=== PATIENT | female | born 1955 | race Caucasian/White ===

== ENCOUNTER 2017-11-16 06:47 | Day surgery (SDC) | payer OTHER, SELFPAY ==
[2017-11-16 07:14] VITALS: BP 141/80; PULSE 60; RESP 16; TEMP 36.1; O2SAT 97; BMI 32.1
--- NOTE | 2017-11-16 08:11 | HP.PCM_ITS ---
Problem List (1) Screening for intestinal cancer Status: Acute History of Present Illness Date of Admission: 11/16/17 The patient is a 62 year old F who previously had perforated diverticulitis required a diverting colostomy. She has subsequently had a takedown the colostomy. She has had repair of incisional and stomal hernias with mesh. She has a family history of a father who had a rectal polyp. She does not believe that she is any family history of colon cancer. Fortunately she is not currently having any abdominal pain bright red blood per rectum or melena. Her weight has been slightly increasing. She has not had any acute change of bowel habits. Past Medical History Past Medical History (Chronic Problems): Chronic Problems Hypothyroidism (Chronic) HLD (hyperlipidemia) (Chronic) Diverticulitis of sigmoid colon (Chronic) Depression (Chronic) Status post colostomy (Chronic) Allergies No Known Allergies Allergy (Verified 11/09/17 12:10) Home Medications: Ambulatory Orders Medication Instructions Recorded Atorvastatin Calcium [Lipitor] 20 mg PO QHS 11/09/17 Levothyroxine Sodium [Synthroid] 100 mcg PO DAILY 11/09/17 Metformin HCl [Metformin HCl ER] 750 mg PO DAILY 11/09/17 [place]-3 Fatty Acids/Fish Oil [Fish 2 each PO QHS 11/09/17 Oil 1,000 mg Capsule] Sertraline HCl [Zoloft] 100 mg PO DAILY 11/09/17 Surgical History: colectomy Smoking Status: Never smoker Review of Systems Constitutional: Denies: Weight Change Eyes: Denies: Blurred vision, Vision Change HEENT: Denies: Ear Pain, Eye Pain Cardiovascular: Denies: Chest Pain, Claudication Respiratory: Denies: Cough, Shortness of Breath Gastrointestinal: Denies: Hematemesis, Hematochezia Genitourinary: Denies: Dysuria, Hematuria Musculoskeletal: Denies: Leg Pain Skin: Denies: Jaundice Neurological: Denies: Confusion Psychiatric: Denies: Depression Endocrine: Denies: Change in Body Habitus Hematologic/ Lymphatic: Denies: Easy Bleeding VTE Information - Inpt Only VTE Present on Admission: No Patient Problems: Active and Suspected Problems Screening for intestinal cancer (Acute) - Physical Exam General: Alert, Oriented x3, Cooperative HEENT: Atraumatic Oral: Moist Mucosa Neck: Supple Lungs: Clear to auscultation Cardiovascular: Regular rate Abdomen: Bowel Sounds Present, Soft Extremities: No clubbing Skin: No rashes Musculoskeletal: No Tenderness to Palpation of Joints or Extremities Lymphatic: No Cervical, Supraclavicular, or Inguinal Adenopathy Neurological: Cranial nerves II-XII grossly intact Psych/Mental Status: Normal Affect Vital Signs Temp Pulse Resp BP Pulse Ox 97.0 F L 60 16 141/80 H 97 11/16/17 07:14 11/16/17 07:14 11/16/17 07:14 11/16/17 07:14 11/16/17 07:14 Oxygen Delivery Method Room Air Weight: 190 lb Body Mass Index (BMI) 32.1 Assessment/Plan Active and Suspected Problems Screening for intestinal cancer (Acute) This patient has had a previous sigmoid colectomy and a previous diverting colostomy and a previous takedown of the colostomy. She presents now for follow -up screening. She has had an opportunity to ask and have questions answered. I anticipate proceeding with a colonoscopy with possible biopsy or polypectomy as indicated. Ghanshyam Hinojosa M.D., F.A.C.S.
--- NOTE | 2017-11-16 08:25 | COLBX_PTH ---
PATIENT: RAMONITA GALEANA LOC: EN U#:[id number] AGE/SX: 62/F ROOM: RE11/16/[address]: Dr. Ghanshyam Hinojosa MD : 1955 BED: DIS: 11/16/2017 SPEC #: [id number] RECD: 11/16/17 13:15 STATUS: CAROLYN CHARLES #: [id number] DAYNE: 11/16/17 08:[address]: Ghanshyam Hinojosa DEPT: SURGICAL PATHOLOGY RECD BY: Johanna Hong ENTERED: 11/16/17 14:11 SP TYPE: COLON BX OTHR DR: Dr. Matt Wells MD Tissues: Rectum, NOS Procedures: Surgery Specimen Level IV HEADER OPERATION: Colonoscopy PRE-OP DIAGNOSIS: Screening TISSUE SUBMITTED: Rectum polyp biopsy MICROSCOPIC DIAGNOSIS Rectum polyp, biopsy: Fragments of hyperplastic polyp. SJ:sofie 11/19/17 MICROSCOPIC DESCRIPTION Slides are reviewed. GROSS DESCRIPTION Received in fixative is one container labeled with the patient's name and designated rectum polyp biopsy. The specimen consists of three irregular fragments of light [place] soft tissue that in aggregate measure 0.7 x 0.7 x 0.1 cm. The specimen is totally submitted in one cassette. / SJ:sofie 11/16/17 TC:1 CPT: 79934
--- NOTE | 2017-11-16 08:34 | PCM.OPRPT ---
Problem List (1) Screening for intestinal cancer Status: Acute Report of Operation Date of Procedure: 11/16/17 Pre-Operative Diagnosis: Personal history of complicated diverticulitis, sigmoid resection, diverting colostomy Post-Operative Diagnosis: Patent colorectal anastomosis at 12 cm. Diminutive sessile polyp of the rectum. Residual diverticulosis of the descending colon Surgery/Procedure Performed:: Colonoscopy with cold forcep rectal polypectomy Description of Surgical Findings:: Timeout and informed consent was obtained. 62-year-old female was taken to the endoscopy suite. She was placed in a left lateral decubitus position. Throughout the procedure in aliquots she received a total of 75 mg Demerol and 2.5 mg of Versed is intravenous sedation. Digital rectal exam performed. Moderate internal hip changes. Normal anal tone. No mass lesions. Flexible colonoscope inserted the rectum advanced was somewhat tortuous sigmoid descending colon. It was then advanced to the transverse colon and then nicely into the ascending colon. The cecum ileocecal valve area was nicely achieved. Bowel prep was good. The scope was carefully withdrawn from the cecum ascending colon transverse colon descending colon and sigmoid. There is evidence of postsurgical changes with a patent colorectal anastomosis at 12 cm. There was residual mild diverticulosis of the descending colon. No evidence of acute inflammatory change. There was a diminutive sessile polyp of the rectum. Cold forcep was used to sample and eradicate this lesion. She tolerated procedure well. The scope was retroflexed hemorrhoidal changes noted. Excess fluid and air was aspirated free. Impression Patent colorectal anastomosis at 12 cm. Residual diverticulosis of the descending colon. Sessile benign-appearing polyp of the rectum. Internal hemorrhoids. The patient will be notified of pathology results as they become available. Previous colonoscopy at least 5 years prior. Next recommended colonoscopy will be based upon pathology possibly at 5 years. Medications were given at 0815. Scope was inserted 0818. Cecum was reached at 0821.51. The procedure was completed at 0831.3. Cc: Dr. Priscilla Hinojosa M.D., F.A.C.S. Type of Anesthesia:: IV Sedation
[2017-11-16 08:35] VITALS: BP 141/80; BP 90/54; PULSE 67; RESP 18; TEMP 36.3; O2SAT 95
[2017-11-16 08:40] VITALS: BP 100/72; BP 141/80; PULSE 68; RESP 18; O2SAT 96
[2017-11-16 08:45] VITALS: BP 141/80; BP 94/55; PULSE 73; RESP 18; O2SAT 95
[2017-11-16 08:51] VITALS: BP 115/79; BP 141/80; PULSE 75; RESP 18; TEMP 37.3; O2SAT 95
[2017-11-16 09:05] VITALS: BP 141/80
== END 2017-11-16 09:18 | disposition home or self-care (01) ==
LOC: EN 06:48 → AC 06:50
PROVIDERS: Family Provider Family Medicine; PCP Family Medicine; Visit Provider Surgery
PROC: 0DJD8ZZ Inspection of Lower Intestinal Tract, Via Natural or Artificial Opening Endoscopic (ICD-10-PCS; CPT 45378; principal; 2017-11-16 07:55)
DX: Z12.11 Encounter for screening for malignant neoplasm of colon (principal); K62.1 Rectal polyp; K57.90 Diverticulosis of intestine, part unspecified, without perforation or abscess without bleeding; K64.8 Other hemorrhoids; E03.9 Hypothyroidism, unspecified; E78.5 Hyperlipidemia, unspecified; F32.9 Major depressive disorder, single episode, unspecified; Z93.3 Colostomy status
CPT/HCPCS: 45380; 88305; J7120

== ENCOUNTER 2020-02-01 22:16 | Emergency (ER) | payer OTHER, SELFPAY ==
[2020-02-01 22:18] VITALS: BP 158/87; PULSE 87; RESP 18; TEMP 36.1; O2SAT 94; BMI 36.0
--- NOTE | 2020-02-01 22:38 | EKG12_ITS ---
Test Reason : DYSRHYTHMIA Blood Pressure : / mmHG Vent. Rate : 071 BPM Atrial Rate : 071 BPM P-R Int : 150 ms QRS Dur : 086 ms QT Int : 412 ms P-R-T Axes : 047 012 079 degrees QTc Int : 447 ms Normal sinus rhythm Nonspecific ST and T wave abnormality Abnormal ECG Confirmed by MICHAELA ANDREWS, ELPIDIO ([id number]), make up editor FIDE EDGAR ([id number]) on 02/03/2020 10:17:15 AM Referred By: ERICH Confirmed By:ELPIDIO JENNINGS MD
--- NOTE | 2020-02-01 22:44 | ED.DCSUM_ITS ---
History of Present Illness Chief Complaint: Constipation Informant: Patient Onset: Days - She reports has not had a normal bowel movement since . She is taken mag citrate, Dulcolax and other agents to help her move her bowels. She states she passed a stringy stool at 10 AM this morning while attending [facility]. She does not recall the last time she passed gas. Context: Sudden Onset Timing: Continuous Quality: Colicky abdominal pain Location: Generalized Current Severity: Mild Maximum Severity: Severe Worsened by: Possibly the laxatives and other agents she is taken to facilitate BM Relieved by: Thing Associated Symptoms: Nausea and vomiting x3 since 1999 this evening. Narrative: Patient is a 64-year-old woman status post cholecystectomy, appendectomy, vaginal hysterectomy and bowel resection due to perforated diverticular disease. Her general surgeon is Dr. Ghanshyam Hinojosa. She presents because of abdominal pain, distention and no normal bowel movement since . She had small bowel movement after numerous skvj-lfg-eclafic meds. She reports vomiting x3 since 1999. She does complain of dry mouth and thirst. She denies orthostatic symptoms. She denies dysuria, frequency, urgency or hematuria. She does have type 2 diabetes. She denies history of hypertension. She states her last colonoscopy was 2017 and was told nothing remarkable was noted. She denies blood or mucus in the stool she passed this morning. She denies prior history of small bowel obstruction. She does report intermittent headache. She denies visual, ocular auditory symptoms. She has no other complaints. Prior similar symptoms: No Recent Illness/Hospitalization: No - Past Medical History (1) History of type 2 diabetes mellitus Status: Acute (2) Depression Status: Chronic (3) Diverticulitis of sigmoid colon Status: Chronic (4) HLD (hyperlipidemia) Status: Chronic (5) Hypothyroidism Status: Chronic (6) Status post colostomy Status: Chronic Past Medical History - Allergies and Home Meds Allergies/Adverse Reactions: Allergies No Known Allergies Allergy (Verified 02/01/20 22:17) Primary Care Physician: Matt Wells MD [Primary Care Provider] - Prior records reviewed: Yes Surgical History: appendectomy, colectomy, hysterectomy, - - And bowel resection with colostomy due to perforated viscus, diverticulitis Lives: Spouse/ Significant Other Smoking Status: Never smoker Alcohol: None Drugs: None Review of Systems General: Denies: Chills, Fever, Malaise, Weight loss Eyes: Denies: Visual changes - bilaterally, Blurred Vision - bilaterally ENT: Denies: Bilateral ear pain, Rhinorrhea, Sore throat Cardiovascular: Denies: Chest pain, Palpitations Respiratory: Denies: Dyspnea, Cough, Dyspnea on exertion Gastrointestinal: Reports: Abdominal pain, Nausea, Vomiting, Constipation. Denies: Diarrhea, Melena, Hematochezia Genitourinary: Denies: Dysuria, Hematuria, Frequency Musculoskeletal: Denies: Myalgias, Arthralgias, Neck pain, Back pain, Swelling, Extremity Pain, -, - Skin: Denies: Rash, Wounds Neurological: Reports: Headache Hematologic: Denies: Easy bruising, Easy bleeding Allergy: Denies: Uticaria, Swelling of the mouth Physical Exam Vital Signs/Narrative: Vital Signs Temp Pulse Resp BP Pulse Ox 02/01/20 22:18 97 F L 87 18 158/87 H 94 Inital Vital Signs reviewed: Yes General: Well nourished, Well developed, Obese, - - And appears uncomfortable. Eyes: Perrl, EOMI. Negative for: Pale conjunctiva, Scleral icterus ENT: No rhinorrhea, TM's clear, Dry mucous membranes Neck: Supple, Nontender, No lymphadenopathy, No JVD Cardiovascular: Regular rate, Regular rhythm, No murmurs, Normal S1, Normal S2 Respiratory: No distress, CTA bilaterally, Chest nontender Abdomen: Soft, No masses, Tender, Guarding, Hypoactive bowel sounds, - - He has multiple well-healed abdominal scars. Abdomen is tympanitic to percussion throughout.. Negative for: Nontender, Nondistended, Normal bowel sounds, Rebound tenderness, Hyperactive bowel sounds, Hepatomegaly, Splenomegaly, Mass, Pulsatile mass Back: Nontender, Normal Inspection Extremities: Nontender, No edema Skin: No rash, No Trauma, Pallor. Negative for: Cyanosis, Diaphoresis, Jaundice Neurological: Alert, Oriented x3, Cranial nerves II-XII grossly intact, Normal Strength, Normal Sensation Psychological: Normal affect Diagnostic/Tx/Re-eval Impressions Abdomen CT 02/02/20 00:40 IMPRESSION: There has been a cholecystectomy. Normal right kidney. There is a 2 cm cyst in the lower pole of the LEFT kidney. There is a 2 mm stone in the midpole of the LEFT kidney. There are NO ureteral stones. There is NO hydronephrosis. There has been surgery at the sigmoid colon. Anastomosis is intact. Remainder of the colon is dilated and filled with fluid and air. There is focal thickening of the LEFT colon with induration of the surrounding fat suggesting focal colitis or diverticulitis. There is NO ischemic bowel injury or perforation. The stomach and small bowel are unremarkable. Appendix is not identified. Urinary bladder is distended. There are NO stones. There has been a hysterectomy. There is NO ascites, free air, abscess or adenopathy. Electronically Signed: Ortega Beauchamp MD at 1:09 EDT , Service support , 02/02/20 00:40 Abdomen/Pel W ORAL Cont Only [CT] Stat Laboratory Results 02/01/20 02/01/20 23:00 23:00 WBC 4.2 L RBC 7.55 H Hgb 21.5 H* Hct 67.4 H MCV 89.3 MCH 28.5 MCHC 31.9 L RDW Std Deviation 44.2 H RDW Coeff of Hilda 15.3 H Plt Count 80 L MPV 9.6 Immature Gran % (Auto) 0.200 Neut % (Auto) 70.9 H Lymph % (Auto) 23.7 [place] % (Auto) 3.8 Eos % (Auto) 0.7 Baso % (Auto) 0.7 Absolute Neuts (auto) 3.0 Absolute Lymphs (auto) 1.00 Nucleated RBC % 0 Differential Comment SCANNED Diff Path Review May foll Platelet Estimate MOD DEC Polychromasia 2+ Sodium 140 Potassium 3.7 Chloride 105 Carbon Dioxide 27.0 Anion Gap 8 BUN 13 Creatinine 0.65 Estim Creat Clear Calc 77.49 Est GFR (MDRD) Af Amer 118 Est GFR (MDRD) Non-Af 97 BUN/Creatinine Ratio 19.9 Glucose 158 H Calcium 9.3 Total Bilirubin 0.60 AST 25 ALT 39 Alkaline Phosphatase 83 Total Protein 8.3 H Albumin 3.6 Globulin 4.7 H Albumin/Globulin Ratio 0.8 L CBC is remarkable for hemoglobin 20.1 0.5. There is no history of smoking. White count is slightly low at 4.2 and platelet count is 9000. Comprehensive metabolic panel is marked for glucose of 158. Renal function is normal. CT revealed no evidence of obstruction. - Rhythm Strip Rhythm Strip: Sinus Rhythm Rate: 81 - EKG Initial EKG Interpretation: Sinus Rhythm - Sinus rhythm with a ventricular rate of 71. [place] interval 150 ms. QRS duration 86 ms. QT duration 412 ms. Alexander is normal. There is artifact, which the computer is reading nonspecific ST-T wave changes. Prior: Unchanged - Medical Decision Making With history of multiple bowel surgeries and perforated viscus concern patient may have partial small bowel obstruction. This may also represent fecal impaction. Since she is clinically dehydrated she received 1 L of normal saline wide open. Because there is high concern for obstruction CT of the abdomen with p.o. contrast was ordered. She did receive Zofran for her nausea. She declined pain medicine. Differential diagnosis ileus, partial small bowel obstruction, constipation/impaction ED Disposition - Plan for ED Patient: Disposition: Home or Assisted Living Diagnosis: Obstipation, Nausea and vomiting in adult, Polycythemia vera, Thrombocytopenia, Hyperglycemia due to type 2 diabetes mellitus, Abdominal pain, acute, generalized Instructions: Hemoglobin, Thrombocytopenia, ED Constipation Referrals: Matt Wells MD [Primary Care Provider] - 5-7 Days Additional Instructions: Later this morning drink 10 ounces of mag citrate. 4 hours later drink 1 glass of MiraLAX. Continue to drink a glass of MiraLAX every 1-2 hours until you have results.
[2020-02-01] MEDS: 0.9% Normal Saline 1,000 ML 1000 ML IV (22:59)
[2020-02-01] MEDS: Ondansetron 4 MG/2 ML Vial IV (22:59)
--- NOTE | 2020-02-01 23:03 | EKG12_ITS ---
Test Reason : DYSRHYTHMIA Blood Pressure : / mmHG Vent. Rate : 076 BPM Atrial Rate : 076 BPM P-R Int : 148 ms QRS Dur : 088 ms QT Int : 400 ms P-R-T Axes : 054 009 105 degrees QTc Int : 450 ms Normal sinus rhythm Nonspecific ST and T wave abnormality Abnormal ECG Confirmed by RAMOS ANDREWS, JACKSON ([id number]), editor city FIDE EDGRA ([id number]) on 02/12/2020 10:35:10 AM Referred By: ERICH Confirmed By:JACKSON BEASLEY MD
[2020-02-01 23:36] LABS: ALB/GLOB Ratio 0.8 RATIO (0.9-2.4); AST(SGOT) 25 U/L (15-37); Alanine Aminotransfer ALT/SGPT 39 U/L (13-56); Albumin, Serum 3.6 g/dL (3.2-5.0); Alkaline Phosphatase 83 U/L (45-117); Anion Gap 8 (5-15); BUN 13 mg/dL (7-18); BUN/Creat Ratio 19.9 RATIO (10-20); Calcium,Total 9.3 mg/dL (8.5-10.1); Chloride 105 mmol/L (98-107); Creatinine, Serum 0.65 mg/dL (0.55-1.02); EST Glomerular Filtration Rate 97 mL/min (>60); Est Glom Filt Rate - Afr Amer 118 mL/min (>60); Estimated Creatinine Clearance 77.49 ml/min; Globulin 4.7 g/dL (2.2-4.2); Glucose 158 mg/dL (74-106); Potassium 3.7 mmol/L (3.5-5.1); Protein, Total 8.3 g/dL (6.4-8.2); Sodium Level 140 mmol/L (136-145)
[2020-02-01 23:44] LABS: Basophil# 0.03 X10^3/uL; Mean Corp Hgb Conc 31.9 g/dL (32-36); NRBC Flagged by Analyzer 0 % (0-5)
[2020-02-01 23:47] LABS: Differential Indicated SCAN CRITERIA MET
[2020-02-02 00:08] LABS: Differential Comment SCANNED; Pathologist Review May foll; Platelet Estimate MOD DEC (ADEQ); Polychromasia 2+
[2020-02-02 00:25] VITALS: BP 141/81; PULSE 72; RESP 28; O2SAT 93
--- NOTE | 2020-02-02 00:40 | CT_ITS ---
STUDY: CT ABDOMEN AND PELVIS WITHOUT CONTRAST REASON FOR EXAM: Female, 64 years old. ABD DISTENTION/VOMITING/CONSTIPATION. Hx of vaginal hysterectomy(still has ovaries), appendectomy,cholecystectomy,umbilical hernia repair, sigmoid resection with colostomy and reversal. RADIATION DOSAGE (If Supplied By Facility): CTDIvol = ( 17.21 ) mGy, DLP = ( 885.56 ) mGycm TECHNIQUE: Transaxial images were obtained from the dome of the diaphragm to the symphysis pubis without oral contrast, and without intravenous contrast. Sagittal and coronal images were reconstructed. Individualized dose optimization techniques were used for this CT. COMPARISON: None. FINDINGS: There is a 7 mm calcified granuloma at the RIGHT lung base. There are NO active infiltrates. The visualized portions of the heart are within normal limits. Normal liver. There has been a cholecystectomy. Normal spleen. Normal pancreas. Normal bilateral adrenal glands. Normal right kidney. There is a 2 cm cyst in the lower pole of the LEFT kidney. There is a 2 mm stone in the midpole of the LEFT kidney. There are NO ureteral stones. There is NO hydronephrosis. There has been surgery at the sigmoid colon. Anastomosis is intact. Remainder of the colon is dilated and filled with fluid and air. There is focal thickening of the LEFT colon with induration of the surrounding fat suggesting focal colitis or diverticulitis. There is NO ischemic bowel injury or perforation. The stomach and small bowel are unremarkable. Appendix is not identified. Normal abdominal aorta. Normal inferior vena cava. Normal retroperitoneum. Urinary bladder is distended. There are NO stones. There has been a hysterectomy. There is NO ascites, free air, abscess or adenopathy. Normal abdominal wall. Normal osseous structures. CT/Abdomen/Pel W ORAL Cont Only IMPRESSION: There has been a cholecystectomy. Normal right kidney. There is a 2 cm cyst in the lower pole of the LEFT kidney. There is a 2 mm stone in the midpole of the LEFT kidney. There are NO ureteral stones. There is NO hydronephrosis. There has been surgery at the sigmoid colon. Anastomosis is intact. Remainder of the colon is dilated and filled with fluid and air. There is focal thickening of the LEFT colon with induration of the surrounding fat suggesting focal colitis or diverticulitis. There is NO ischemic bowel injury or perforation. The stomach and small bowel are unremarkable. Appendix is not identified. Urinary bladder is distended. There are NO stones. There has been a hysterectomy. There is NO ascites, free air, abscess or adenopathy. Electronically Signed: Ortega Beauchamp MD at 1:09 EDT , Service support ,
[2020-02-02 01:26] VITALS: BP 148/78; PULSE 81; RESP 22; O2SAT 95
[2020-02-02 14:48] LABS: White Blood Count 11.3 K/mm3 (4.4-11.0)
[2020-02-02 14:49] LABS: Hematocrit 35.4 % (37-47); Hemoglobin 11.3 g/dL (12.0-15.0); Mean Corpuscular Hgb 28.9 pg (27.0-32.0); Mean Corpuscular Volume 90.5 fL (81-99); Red Blood Count 3.91 M/mm3 (4.2-5.4)
[2020-02-02 14:50] LABS: RBC Distribution Width CV 13.5 % (11.6-14.6); RBC Distribution Width SD 44.4 fl (35.1-43.9)
[2020-02-02 14:51] LABS: Lymphocyte % 12.2 % (19-41); Mean Platelet Vol. 10.3 fl (6.2-12.0); Monocyte% 5.9 % (0-10); Neutrophil % 80.7 % (47-70); Platelet Count 305 K/mm3 (150-450)
[2020-02-02 14:52] LABS: Basophil% 0.3 % (0-1); Eosinophils% 0.5 % (0-5); Neutrophil # 9.09 X10^3/uL (2.7-7.7)
[2020-02-02 14:53] LABS: Absolute Neutrophil Count 9.1 X10^3/uL (2.0-7.7)
[2020-02-02 14:54] LABS: Absolute Lymphocyte Count 1.37 X10^3/uL (0.83-4.51); Eosinophil# 0.06 X10^3/uL; Lymphocyte # 1.37 X10^3/ul (4.0); Monocyte# 0.66 X10^3/uL
== END 2020-02-02 01:44 | disposition home or self-care (01) ==
PROVIDERS: Emergency Provider Emergency Medicine; PCP Family Medicine
DX: K59.00 Constipation, unspecified (principal); E11.65 Type 2 diabetes mellitus with hyperglycemia; D45 Polycythemia vera; D69.6 Thrombocytopenia, unspecified; R10.84 Generalized abdominal pain; F32.9 Major depressive disorder, single episode, unspecified; E78.5 Hyperlipidemia, unspecified; E03.9 Hypothyroidism, unspecified; Z93.3 Colostomy status; Z79.84 Long term (current) use of oral hypoglycemic drugs; Z79.899 Other long term (current) drug therapy; E66.9 Obesity, unspecified
CPT/HCPCS: 74176; 80053; 85025; 93005; 96361; 96374; 99285; J7030; A4216; J2405

== ENCOUNTER 2022-12-26 05:17 | Day surgery (SDC) | payer MEDICARE, SELFPAY ==
[2022-12-26] VITALS (7 sets, daily range): BP systolic 102–132; BP diastolic 55–74; PULSE 60–73; RESP 16; TEMP 36.5–37; O2SAT 95–97; BMI 31.6
[2022-12-26] MEDS: Lactated Ringers 1,000 ML 15 ML IV (05:52)
--- NOTE | 2022-12-26 06:10 | HP.PCM_ITS ---
[facility] - General General Date of Service: 12/26/22 Chief Complaint: Surveillance with personal history of colon polyps HPI Narrative RAMONITA GALEANA, is a 67 F who presents via open access today for surveillance colonoscopy. Previous colonoscopy was November 16, 2017 and I removed a polyp at that time. She does have a previous sigmoid anastomosis from a previous perforated diverticulitis. She also required a temporary diverting colostomy at that time. She states that she occasionally will get hemorrhoids to flare and has some rectal bleeding but overall feels good. No abdominal pain. No unexpected weight loss. No history of DVT. [facility] Medical History (Updated 12/26/22 @ 06:[address] Ghanshyam Hinojosa MD) Anxiety CPAP (continuous positive airway pressure) dependence Diabetes Gastric reflux High cholesterol History of diverticulitis History of echocardiogram History of stress test Non-smoker Post-menopausal Sleep apnea Thyroid disease Wears glasses Wears hearing aid Home Medications atorvastatin 20 mg tablet 20 mg PO QHS 11/09/17 [History Last Taken Unknown] levothyroxine 100 mcg tablet (Synthroid) 100 mcg PO DAILY 11/09/17 [History Last Taken Unknown] omega-3 fatty acids-fish oil 340 mg-1,000 mg capsule (Fish Oil) 2 ea PO QHS 11/09/17 [History Last Taken 12/13/22] sertraline 100 mg tablet (Zoloft) 100 mg PO DAILY 11/09/17 [History Last Taken Unknown] Bacillus coagulans 10 billion cell capsule,delayed release (Probiotic (B. coagulans)) 1 cell PO DAILY 11/15/22 [History Last Taken Unknown] cholecalciferol (vitamin D3) 50 mcg (2,000 unit) capsule 25 mcg PO DAILY 11/15/22 [History Last Taken Unknown] glipizide 10 mg tablet, extended release 24 hr 5 mg PO DAILY 11/15/22 [History Last Taken Unknown] Allergy/AdvReac Type Severity Reaction Status Date / Time metformin AdvReac Diarrhea Verified 12/26/22 05:48 Family History (Updated 11/15/22 @ 11:51 by Rosio Rubio) Father Colon polyps Surgical History (Updated 12/19/22 @ 15:40 by Symone Marcos) History of colonoscopy History of colostomy reversal Hx of colostomy Social History Smoking Status: Never smoker ROS Constitutional Constitutional: Reports systems reviewed and no addt'l complaints, except as documented Cardiovascular Cardiovascular: Denies chest pain Respiratory/Chest Respiratory/Chest: Denies shortness of breath at rest Gastrointestinal Gastrointestinal: Denies abdominal pain, change in bowel habits, hematochezia or melena Vital Signs Vital Signs Vital Signs: 12/26/22 05:49 12/26/22 05:49 Temperature 97.8 F Temperature Source Temporal Pulse Rate 62 Respiratory Rate 16 Respiratory Pattern Normal Blood Pressure 132/62 H Blood Pressure Mean 85 Blood Pressure Source Monitor Blood Pressure Position Sitting Blood Pressure Location Right Arm Pulse Ox 95 Oxygen Delivery Method Room Air Weight Weight: 190 lb 7.67 oz Body Mass Index (BMI) 31.6 Physical Exam Const alert, oriented x3 and no apparent distress General Appearance: cooperative and comfortable Eyes General Eye: normal appearance of both eyes Neck General: normal visual inspection Chest inspection of chest normal Resp Effort and Inspection: able to speak in complete sentences and symmetric chest movement Auscultation: clear to auscultation bilaterally Cardio regular rate and regular rhythm GI soft to palpation, non-tender and non-distended Extremity no calf tenderness Neuro oriented x3 Psych thought process normal Assessment & Plan Assessment/Plan (1) Personal history of colonic polyps: PLAN: The patient presents today via open access for surveillance colonoscopy as she has a personal history of colon polyps. She is aware of the technique, benefit, risk, alternatives. She has had an opportunity to ask and have questions answered. We will proceed as noted. Ghanshyam Hinojosa M.D., F.A.C.S.
[2022-12-26 06:16] LABS: Bedside Glucose 126 mg/dL (74-106)
--- NOTE | 2022-12-26 06:30 | COLBX_PTH ---
PATIENT: RAMONITA GALEANA LOC: EN U#:[id number] AGE/SX: 67/F ROOM: RE12/26/[address]: Dr. Ghanshyam Hinojosa MD : 1955 BED: DIS: 12/26/2022 SPEC #: [id number] RECD: 12/26/22 09:39 STATUS: CAROLYN SOTO #: [id number] DAYNE: 12/26/22 06:[address]: Ghanshyam Hinojosa DEPT: SURGICAL PATHOLOGY RECD BY: Nel Cardenas ENTERED: 12/26/22 10:31 SP TYPE: COLON BX OTHR DR: ANTONELLA Lopez Tissues: Transverse colon Procedures: Surgery Specimen Level IV HEADER OPERATION: Colonoscopy ? open access (MAC), polypectomy PRE-OP DIAGNOSIS: History of colonic polyps TISSUE SUBMITTED: Proximal transverse polyp MICROSCOPIC DIAGNOSIS Proximal transverse colon polyp, polypectomy: Fragments of hyperplastic polyp. SJ:sofie 12/27/2022 MICROSCOPIC DESCRIPTION Slides are reviewed. GROSS DESCRIPTION Received in fixative is one container labeled with the patient's name and designated proximal transverse polyp. The specimen consists of multiple irregular fragments of light byrne soft tissue that in aggregate measure 1.0 x 0.5 x 0.1 cm. The specimen is totally submitted in one cassette. / SJ:sofie 12/26/2022 TC:1 CPT: 49768
--- NOTE | 2022-12-26 06:56 | OP.COLON_ITS ---
Patient Name: Lorena Hahn Procedure Date: 12/26/2022 6:22 AM Date of : 1955 Age: 67 Procedure: Colonoscopy Indications: High risk colon cancer surveillance: Personal history of colonic polyps Providers: Ghanshyam Hinojosa MD Referring MD: Ghanshyam Hinojosa MD Medicines: See the Anesthesia note for documentation of the administered medications Patient Profile: Last Colonoscopy: October 2017. Complications: No immediate complications. Procedure: Pre-Anesthesia Assessment: - Prior to the procedure, a History and Physical was performed, and patient medications and allergies were reviewed. The patient's tolerance of previous anesthesia was also reviewed. The risks and benefits of the procedure and the sedation options and risks were discussed with the patient. All questions were answered, and informed consent was obtained. Prior Anticoagulants: The patient has taken no previous anticoagulant or antiplatelet agents. ASA Grade Assessment: II - A patient with mild systemic disease. After reviewing the risks and benefits, the patient was deemed in satisfactory condition to undergo the procedure. After I obtained informed consent, the scope was passed under direct vision. Throughout the procedure, the patient's blood pressure, pulse, and oxygen saturations were monitored continuously. The Colonoscope was introduced through the anus and advanced to the cecum, identified by appendiceal orifice and ileocecal valve. The colonoscopy was performed without difficulty. The patient tolerated the procedure well. The quality of the bowel preparation was good. The ileocecal valve and the appendiceal orifice were photographed. Scope In: 6:34:41 AM Scope Withdrawal Time 0 hours 9 minutes 50 seconds Scope Out: 6:49:14 AM Total Procedure Duration Time 0 hours 14 minutes 33 seconds Findings: The digital rectal exam findings include non-thrombosed external hemorrhoids, non-thrombosed internal hemorrhoids and internal hemorrhoids that prolapse with straining, but spontaneously regress to the resting position (Grade II). There was evidence of a prior end-to-side colo-colonic anastomosis in the recto-sigmoid colon. This was patent and was characterized by healthy appearing mucosa. A 6 mm polyp was found in the proximal transverse colon. The polyp was sessile. The polyp was removed with a cold snare. Resection and retrieval were complete. Multiple diverticula were found in the sigmoid colon. Impression: - Non-thrombosed external hemorrhoids, non-thrombosed internal hemorrhoids and internal hemorrhoids that prolapse with straining, but spontaneously regress to the resting position (Grade II) found on digital rectal exam. - Patent end-to-side colo-colonic anastomosis, characterized by healthy appearing mucosa. - One 6 mm polyp in the proximal transverse colon, removed with a cold snare. Resected and retrieved. - Diverticulosis in the sigmoid colon. Recommendation: - Discharge patient to home. - Resume previous diet. - Continue present medications. - Repeat colonoscopy in 5 years for surveillance based on pathology results. - Telephone my office for pathology results in 1 week. Procedure Code(s): --- Professional --- 22986, Colonoscopy, flexible; with removal of tumor(s), polyp(s), or other lesion(s) by snare technique Diagnosis Code(s): --- Professional --- Z86.010, Personal history of colonic polyps K64.1, Second degree hemorrhoids K64.4, Residual hemorrhoidal skin tags Z98.0, Intestinal bypass and anastomosis status D12.3, Benign neoplasm of transverse colon (hepatic flexure or splenic flexure) K57.30, Diverticulosis of large intestine without perforation or abscess without bleeding CPT copyright 2017 [employer]. All rights reserved. The codes documented in this report are preliminary and upon relief charge nurse review may be revised to meet current compliance requirements. Ghanshyam Hinoojsa MD 12/26/2022 6:54:48 AM This report has been signed electronically. Number of Addenda: 0 Note Initiated On: 12/26/2022 6:22 AM
--- NOTE | 2022-12-26 06:56 | OP.CCLET_ITS ---
12/26/2022 [facility] Re : Colonoscopy procedure for Lorena Barrera This procedure was performed on Monday, December 26, 2022. My impressions and recommendations are as follows: Impressions : - Non-thrombosed external hemorrhoids, non-thrombosed internal hemorrhoids and internal hemorrhoids that prolapse with straining, but spontaneously regress to the resting position (Grade II) found on digital rectal exam. - Patent end-to-side colo-colonic anastomosis, characterized by healthy appearing mucosa. - One 6 mm polyp in the proximal transverse colon, removed with a cold snare. Resected and retrieved. - Diverticulosis in the sigmoid colon. Recommendations : - Discharge patient to home. - Resume previous diet. - Continue present medications. - Repeat colonoscopy in 5 years for surveillance based on pathology results. - Telephone my office for pathology results in 1 week. My findings are described in the full procedure note, which is enclosed. If I can be of further assistance, please feel free to contact me at Doctor phone number(s): Work: . Sincerely, Ghanshyam Hinojosa MD 12/26/2022 6:54:48 AM This report has been signed electronically.
== END 2022-12-26 07:31 | disposition home or self-care (01) ==
LOC: EN 05:18 → AC 05:20
PROVIDERS: PCP Physician Assistant; Referring Provider Physician Assistant; Visit Provider Surgery
PROC: 0DJD8ZZ Inspection of Lower Intestinal Tract, Via Natural or Artificial Opening Endoscopic (ICD-10-PCS; CPT 45378; principal; 2022-12-26 06:25)
DX: K63.5 Polyp of colon (principal); E11.9 Type 2 diabetes mellitus without complications; Z12.11 Encounter for screening for malignant neoplasm of colon; Z86.010 Personal history of colon polyps; K62.5 Hemorrhage of anus and rectum; K57.30 Diverticulosis of large intestine without perforation or abscess without bleeding; K64.4 Residual hemorrhoidal skin tags; Z79.84 Long term (current) use of oral hypoglycemic drugs; E78.00 Pure hypercholesterolemia, unspecified; K64.1 Second degree hemorrhoids; Z98.0 Intestinal bypass and anastomosis status; Z87.19 Personal history of other diseases of the digestive system; E07.9 Disorder of thyroid, unspecified; Z79.890 Hormone replacement therapy
CPT/HCPCS: 45385; 82962; 88305; J2405

== ENCOUNTER → 2023-09-05 | Outpatient (CLI) | payer MEDICARE, SELFPAY ==
--- NOTE | 2023-09-05 | ASPS_PTH ---
PATHOLOGY RESULTS PATIENT: RAMONITA GALEANA LOC: [facility] U#:[id number] AGE/SX: 68/F ROOM: RE09/05/[address]: Dr. 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 Adequate for evaluation. See comment. SJ:sofie 09/06/2023 COMMENT Correlation with clinical, radiologic findings and appropriate follow up are necessary. The Bolivar System for thyroid diagnostic categorization was used in the evaluation of this case. Per recommendations and a clinician-approved plan (a call was made to the referring doctor about the recommendation), genomic testing (Afirma) has been submitted. Results will be reported as an addendum and faxed to clinician. Case has been reviewed in consultation with Dr. Menjivar who concurs with the above diagnosis. IDC:AM CYTOLOGY STUDY Slides are reviewed. CYTOLOGY GROSS Received are six smears labeled with the patient's name and designated per the requisition as isthmus. Submitted for staining. / sofie 09/05/2023 TC:5 CPT: 67410 ADDENDUM ADDENDUM 09/24/2023 09:35 AFIRMA RESULTS REPORT RESULTS INTERPRETATION: The result of this 1.8 cm Bolivar III nodule A is Afirma GSC benign, which suggests a low risk of cancer of approximately 4%. Please see complete report in e-chart or EMR
--- OUTSIDE RECORDS SUMMARY | 2023-09-05 15:36 | XMS RPT_ITS | CCD ---
Author Name Unknown Address Count includes the [facility] [facility] [address] [place] [address] Organization [facility] Care Team Providers Care Foam Caster Name Role Phone Matt Wells Primary Care Provider ASHIA GREENWOOD Primary Care Unavailable ASHIA GREENWOOD Consulting Unavailable ASHIA GREENWOOD Attending Unavailable ASHIA GREENWOOD Admitting Unavailable PROVIDER, UNKNOWN Consulting Unavailable ASHIA GREENWOOD Primary Care Unavailable ASHIA GREENWOOD Consulting Unavailable ASHIA GREENWOOD Attending Unavailable ASHIA GREENWOOD Admitting Unavailable PROVIDER, UNKNOWN Consulting Unavailable Allergies Allergy Classification Reported Allergen(s) Allergy Type Date of Onset Reaction(s) Facility Adhesive Tape (1 source) Adhesive Tape Substance Allergy 12-28-2011 Intolerance [facility] Medications Completed/Discontinued Medications Medication Drug Class(es) Dates Sig (Normalized) Sig (Original) Adhesive Tape (PAPER TAPE) 1 X 10 -yard Tape (1 source) Start: 02-01-2012 End: 10-02-2012 Adhesive Tape (PAPER TAPE) 1 X 10 -yard Tape Apply 1 application to affected area once daily. 1 Each 12 02/01/2012 10/02/2012 Discontinued (Course of therapy completed) Problems Active Problems Problem Classification Problem Date Documented Da te Episodic/Chronic Diverticulosis and diverticulitis (1 source) Diverticulitis of large intestine; Translations: [Diverticulitis of large intestine with perforation and abscess without bleeding] Onset: 2 01-18-2012 Chronic Gastrointestinal hemorrhage (2 sources) Rectal hemorrhage; Translations: [Hemorrhage of anus and rectum] Onset: 2 2011 Episodic Other gastrointestinal disorders (1 source) Irritable bowel syndrome; Translations: [Irritable bowel syndrome without diarrhea] Onset: 1 2011 Chronic Other screening for suspected conditions (not mental disorders or infectious disease) (2 sources) Electrocardiogram abnormal; Translations: [Abnormal electrocardiogram [ECG] [EKG]] Onset: 3 Episodic Past or Other Problems Problem Classification Problem Date Documented Da te Episodic/Chronic Abdominal hernia (1 source) Incisional hernia; Translations: [Incisional hernia without obstruction or gangrene] Onset: 02-11-2013 02-11-2013 Episodic Complications of surgical procedures or medical care (1 source) Non-healing surgical wound; Translations: [Other complications of procedures, not elsewhere classified, initial encounter] Onset: 11-27-2011 11-27-2011 Episodic Hemorrhoids (2 sources) Internal hemorrhoids; Translations: [Other hemorrhoids] Onset: 08-16-2009 08-16-2009 Episodic Open wounds of head; neck; and trunk (1 source) Open wound of abdomen; Translations: [Unspecified open wound of abdominal wall, unspecified quadrant without penetration into peritoneal cavity, initial encounter] Onset: 01-03-2012 01-03-2012 Episodic Other and unspecified benign neoplasm (1 source) Benign neoplasm of rectum and anal canal; Translations: [Benign neoplasm of rectum] Onset: 10-16-2011 10-16-2011 Episodic Other gastrointestinal disorders (1 source) Diarrhea; Translations: [Diarrhea, unspecified] Onset: 08-16-2009 08-16-2009 Episodic Other injuries and conditions due to external causes (1 source) Open wound; Translations: [Other injury of unspecified body region, initial encounter] Onset: 12-21-2011 12-21-2011 Episodic Results Test Name Value Interpretation Reference Range Facil ity Encounters Encounter Date Encounter Type Care Provider Facility Start: 08-08-2023 End: 08-08-2023 ambulatory [facility] Start: 05-21-2023 End: 05-21-2023 ambulatory [facility] Start: 04-09-2012 End: 04-09-2012 Telephone encounter Ghanshyam Hinojosa Work Phone: General Surgery Procedures Date Procedure Procedure Detail Performing Clinician Start: 09-30-2012 NM CARDIAC PERF STRESS/EXERCISE Ghanshyam Hinojosa Work Phone: Start: 09-27-2012 Colonoscopy Ghanshyam narayanan Work Phone: Start: 07-11-2012 Mammography Ghanshyam narayanan Work Phone: Plan of Treatment Date Care Activity Detail Author Start: 04-27-2021 Influenza vaccination INFLUENZA (Sea son Ended) [facility] Start: 09-27-2017 Screening for malign ant neoplasm of colon [facility] Start: 01-25-2016 LIPID SCREEN LIPID SCREEN [facility] Start: 12-20-2014 DIABETES SCREEN DIABETES SCREEN [facility] Start: 07-11-2013 Mammography MAMMOGRAM [facility] Start: 2007 Screening for malign ant neoplasm of colon [facility] Start: 2007 SHINGRIX VACCINE (1 of 2) GONZALES GRIX VACCINE (1 of 2) [facility] Start: 1976 Urine microalbumin profile DTAP,TDAP ,TD (1 - Tdap) [facility] Start: 1975 HEPATITIS C SCREENING HEPATITIS C SC REENING [facility] Start: 1975 HIV SCREENING HIV SCREENING [facility] Start: 1969 Adult depression scr eening assessment DEPRESSION SCREENING [facility] Immunizations Immunization Date Immunization Notes Care Provider Gopal muñoz 05-27-2011 influenza virus vacc ine, unspecified formulation Ghanshyam Hinojosa Work Phone: [facility] Payers Date Payer Category Payer Unknown MMO [employer] [id number] 2010-2019 PPO [id number] 1955 Unknown [id number] 1955 Unknown [id number] Medicare [id number] Social History Date Type Detail Facility Start: 04-02-2012 Tobacco smoking stat us NHIS Never smoker [facility] Start: 04-02-2012 Tobacco use and exposure Never used [facility] Start: 04-02-2012 Alcohol intake Current non-dr parts representative of alcohol (finding) [facility] Start: 1955 Sex Assigned At Not on file [facility] Note 04-09-2012 Telephone Encounter - Amada Wyatt Rn - 04/09/2012 2:38 PM EDT Note Date & Type Note Facility 04-09-2012 Miscellaneous Notes Pt was in ER on Sunday for back pain. Pt states she was given Morphine and Toradol and muscle relaxants. She has not had any stool out of colostomy bag or gas since Sunday. Pt c/o abdominal pain and nausea. Pt states she has not eaten much and taking Senna. Informed Dr Hinojosa of above. Per Dr Hinojosa, pt is take a bottle of Mag Citrate. Informed pt of above. Verbalized understanding. documented in this encounter [facility] Evaluation note Note Date & Type Note Facility documented in this encounter [facility] Summary Purpose Family History No Family History Records FoundNo Family History Records Found Advance Directives No Advanced Directives Records FoundNo Advanced Directives Records Found Additional Source Comments Source Comments (unrecognize d section and content) In the event this informatio n is protected by the Federal Confidentiality of Alcohol and Drug Abuse Patient Records regulations: The Federal rules restrict any use of the information to criminally investigate or prosecute any alcohol or drug abuse patient.[facility] Reason for Visit (unrecogniz ed section and content) INFORMATION SOURCE (unrecogn ized section and content) DATE CREATED AUTHOR AUTHOR'S ORGANIZ ATION 08/10/2023 [facility] FOR RECORDS PERTAINING TO PATIENTS WHO ARE OR HAVE BEEN ENROLLED IN A CHEMICAL DEPENDENCY/SUBSTANCEABUSE PROGRAM, SOME INFORMATION MAY BE OMITTED. This clinical summary was aggregated from multiple sources. Caution should be exercised in using it in the provision of clinical care. This summary normalizes information from multiple sources, and as a consequence, information in this document may materially change the coding, format and clinical context of patient data. In addition, data may be omitted in some cases. CLINICAL DECISIONS SHOULD BE BASED ON THE PRIMARY CLINICAL RECORDS. [facility]. provides no warranty or guarantee of the accuracy or completeness of information in this document.
== END | disposition home or self-care (01) ==
LOC: LABSPEC 15:14
PROVIDERS: PCP Physician Assistant; Referring Provider Surgery; Visit Provider Surgery
DX: E04.1 Nontoxic single thyroid nodule (principal)
CPT/HCPCS: 88161; 88313

== ENCOUNTER → 2023-12-04 | Outpatient (CLI) | payer MEDICARE, SELFPAY ==
[2023-12-04 14:50] LABS: Free T3 2.2 pg/mL (2.18-3.98); T4 Free Direct 0.53 ng/dL (0.76-1.46); Thyroid Stim Hormone (TSH) 0.08 uIU/mL (0.358-3.74)
== END | disposition home or self-care (01) ==
LOC: LAB 11:00
PROVIDERS: PCP Physician Assistant; Referring Provider Internal Medicine Endocrinology, Diabetes & Metabolism; Visit Provider Internal Medicine Endocrinology, Diabetes & Metabolism
DX: E05.00 Thyrotoxicosis with diffuse goiter without thyrotoxic crisis or storm (principal); F32.9 Major depressive disorder, single episode, unspecified
CPT/HCPCS: 36415; 84439; 84443; 84481

== ENCOUNTER → 2023-12-27 | Outpatient (CLI) | payer MEDICARE, SELFPAY ==
[2023-12-27 11:29] LABS: Free T3 3.2 pg/mL (2.18-3.98)
== END | disposition home or self-care (01) ==
LOC: LAB 10:07
PROVIDERS: PCP Physician Assistant; Referring Provider Internal Medicine Endocrinology, Diabetes & Metabolism; Visit Provider Internal Medicine Endocrinology, Diabetes & Metabolism
DX: E05.00 Thyrotoxicosis with diffuse goiter without thyrotoxic crisis or storm (principal)
CPT/HCPCS: 36415; 84439; 84481

== ENCOUNTER → 2024-03-08 | Outpatient (CLI) | payer MEDICARE, SELFPAY ==
[2024-03-08 10:38] LABS: Free T3 4.3 pg/mL (2.18-3.98); T4 Free Direct 1.12 ng/dL (0.76-1.46); Thyroid Stim Hormone (TSH) < 0.01 uIU/mL (0.358-3.74)
== END | disposition home or self-care (01) ==
LOC: LAB 09:29
PROVIDERS: PCP Physician Assistant; Referring Provider Internal Medicine Endocrinology, Diabetes & Metabolism; Visit Provider Internal Medicine Endocrinology, Diabetes & Metabolism
DX: E05.00 Thyrotoxicosis with diffuse goiter without thyrotoxic crisis or storm (principal)
CPT/HCPCS: 36415; 84439; 84443; 84481

== ENCOUNTER → 2024-03-18 | Outpatient (CLI) | payer MEDICARE, SELFPAY ==
[2024-03-18 12:40] LABS: Free T3 4.5 pg/mL (2.18-3.98); T4 Free Direct 1.15 ng/dL (0.76-1.46); Thyroid Stim Hormone (TSH) < 0.01 uIU/mL (0.358-3.74)
== END | disposition home or self-care (01) ==
LOC: LAB 10:50
PROVIDERS: PCP Physician Assistant; Visit Provider Internal Medicine Endocrinology, Diabetes & Metabolism
DX: E05.00 Thyrotoxicosis with diffuse goiter without thyrotoxic crisis or storm (principal)
CPT/HCPCS: 36415; 84439; 84443; 84481

== ENCOUNTER → 2024-04-17 | Outpatient (CLI) | payer MEDICARE, SELFPAY ==
[2024-04-17 17:20] LABS: Free T3 3.4 pg/mL (2.18-3.98); T4 Free Direct 0.91 ng/dL (0.76-1.46); Thyroid Stim Hormone (TSH) < 0.005 uIU/mL (0.358-3.740)
== END | disposition home or self-care (01) ==
LOC: LAB 16:02
PROVIDERS: PCP Physician Assistant; Referring Provider Internal Medicine Endocrinology, Diabetes & Metabolism; Visit Provider Internal Medicine Endocrinology, Diabetes & Metabolism
DX: E05.00 Thyrotoxicosis with diffuse goiter without thyrotoxic crisis or storm (principal)
CPT/HCPCS: 36415; 84439; 84443; 84481

== ENCOUNTER → 2024-05-21 | Outpatient (CLI) | payer MEDICARE, SELFPAY ==
[2024-05-21 10:40] LABS: Free T3 3.4 pg/mL (2.18-3.98); Thyroid Stim Hormone (TSH) < 0.005 uIU/mL (0.358-3.740)
== END | disposition home or self-care (01) ==
LOC: LAB 08:57
PROVIDERS: PCP Physician Assistant; Referring Provider Internal Medicine Endocrinology, Diabetes & Metabolism; Visit Provider Internal Medicine Endocrinology, Diabetes & Metabolism
DX: E05.00 Thyrotoxicosis with diffuse goiter without thyrotoxic crisis or storm (principal)
CPT/HCPCS: 36415; 84439; 84443; 84481

== ENCOUNTER → 2024-08-05 | Outpatient (CLI) | payer MEDICARE, SELFPAY ==
[2024-08-05 12:53] LABS: Vitamin D,25 Hydroxy 33.7 ng/mL
[2024-08-05 13:27] LABS: ALB/GLOB Ratio 0.8 RATIO (0.9-2.4); AST(SGOT) 18 U/L (15-37); Alanine Aminotransfer ALT/SGPT 22 U/L (13-56); Albumin, Serum 3.5 g/dL (3.2-5.0); Alkaline Phosphatase 112 U/L (45-117); Anion Gap 5 (5-15); BUN 15 mg/dL (7-18); Calcium,Total 9.6 mg/dL (8.5-10.1); Chloride 107 mmol/L (98-107); Cholesterol 149 mg/dL (200); EST Glomerular Filtration Rate 106 mL/min (>60); Est Glom Filt Rate - Afr Amer 128 mL/min (>60); Free T3 3.1 pg/mL (2.18-3.98); Globulin 4.2 g/dL (2.2-4.2); Glucose 87 mg/dL (74-106); High Density Lipoprotein 55 mg/dL; Protein, Total 7.7 g/dL (6.4-8.2); Sodium Level 139 mmol/L (136-145); T4 Free Direct 0.79 ng/dL (0.76-1.46); Thyroid Stim Hormone (TSH) 0.012 uIU/mL (0.358-3.740); Triglycerides 102 mg/dL; Very Low Density Lipoprotein 20 mg/dL (5-40)
[2024-08-05 19:26] LABS: Microalbumin,Random Urine 32.3 mg/L (NO RANGE EST.); Microalbumin:Creatinine Ratio 76.5 mg/g CRE (<30 mg/g CRE)
== END | disposition home or self-care (01) ==
LOC: BIMLAB 10:04
PROVIDERS: PCP Physician Assistant; Referring Provider Internal Medicine Endocrinology, Diabetes & Metabolism; Visit Provider Internal Medicine Endocrinology, Diabetes & Metabolism
DX: E11.649 Type 2 diabetes mellitus with hypoglycemia without coma (principal); E05.00 Thyrotoxicosis with diffuse goiter without thyrotoxic crisis or storm; E78.2 Mixed hyperlipidemia; E66.09 Other obesity due to excess calories; Z68.34 Body mass index [BMI] 34.0-34.9, adult; E55.9 Vitamin D deficiency, unspecified
CPT/HCPCS: 36415; 80053; 80061; 82043; 82306; 82570; 84439; 84443; 84481

== ENCOUNTER → 2025-01-20 | Outpatient (CLI) | payer MEDICARE, SELFPAY ==
[2025-01-20 13:06] LABS: ALB/GLOB Ratio 1.2 RATIO (0.9-2.4); AST(SGOT) 24 U/L (<=31); Alanine Aminotransfer ALT/SGPT 24 U/L (<=34); Alkaline Phosphatase 111 U/L (35-104); Anion Gap 11 (5-15); BUN 33 mg/dL (4-19); BUN/Creat Ratio 43.4 RATIO (10-20); Calcium,Total 9.7 mg/dL (7.6-11.0); Carbon Dioxide 23.4 mmol/L (21.0-32.0); Chloride 105 mmol/L (98-108); Cholesterol 187 mg/dL (<=200); Creatinine, Serum 0.76 mg/dL (0.70-1.20); EST Glomerular Filtration Rate 86 (>60); Free T3 3.8 pg/mL (2.18-3.98); Globulin 3.2 g/dL (2.2-4.2); Glucose 101 mg/dL (70-99); High Density Lipoprotein 59 mg/dL; Low Density Lipoprotein Calc. 98 mg/dL; Potassium 3.9 mmol/L (3.3-5.1); Protein, Total 7.3 g/dL (5.9-8.4); Sodium Level 140 mmol/L (133-145); Triglycerides 152 mg/dL; Very Low Density Lipoprotein 30 mg/dL (5-40); Vitamin D,25 Hydroxy 29.1 ng/mL (30-100); cholesterol:hdl ratio screen 3.19
== END | disposition home or self-care (01) ==
LOC: BIMLAB 10:12
PROVIDERS: PCP Physician Assistant; Referring Provider Internal Medicine Endocrinology, Diabetes & Metabolism; Visit Provider Internal Medicine Endocrinology, Diabetes & Metabolism
DX: E05.00 Thyrotoxicosis with diffuse goiter without thyrotoxic crisis or storm (principal); E11.649 Type 2 diabetes mellitus with hypoglycemia without coma; E04.1 Nontoxic single thyroid nodule; E66.09 Other obesity due to excess calories; Z68.34 Body mass index [BMI] 34.0-34.9, adult; E55.9 Vitamin D deficiency, unspecified
CPT/HCPCS: 36415; 80053; 80061; 82306; 84439; 84443; 84481

== ENCOUNTER → 2025-01-23 | Outpatient (CLI) | payer MEDICARE, SELFPAY ==
--- NOTE | 2025-01-23 14:47 | US_ITS ---
PROCEDURE: THYROID 01/23/2025 REASON FOR EXAM: SIZE AND TI-RADS OF THYROID NODULE TECHNIQUE: High-frequency thyroid ultrasound, including grayscale and color-flow images. REFERENCE LINKS: TI-RADS Chart: [email or web address] TI-RADS Calculator Tool with Reference Images: [email or web address] COMPARISON: None FINDINGS: Right thyroid lobe size: 4.7 x 2.0 x 2.1 cm Left thyroid lobe size: 4.7 x 3.0 x 1.9 cm Isthmus: 0.5 cm Background parenchymal echotexture is heterogeneous Nodules: 1. Lobe: Left, Location: Upper, Size: 0.5 x 0.5 x 0.5 cm, Stability: N/A Composition: Solid or almost completely solid (+2) Echogenicity: Hyper to Isoechoic (+1) Margin: Smooth (+0) Shape: Wider than tall (+0) Echogenic Foci: None (+0) TI-RADS: 3 US/Thyroid IMPRESSION: Heterogeneous appearance of the thyroid, suggestive of underlying thyroid disea se. No suspicious nodularity. Reading Location: [place]
== END | disposition home or self-care (01) ==
LOC: OPUS 14:44 → US 14:45
PROVIDERS: PCP Physician Assistant; Referring Provider Internal Medicine Endocrinology, Diabetes & Metabolism; Visit Provider Internal Medicine Endocrinology, Diabetes & Metabolism
DX: E04.1 Nontoxic single thyroid nodule (principal)
CPT/HCPCS: 76536

== ENCOUNTER → 2025-03-02 | Outpatient (CLI) | payer MEDICARE, SELFPAY ==
[2025-03-02 13:16] LABS: Free T3 3.5 pg/mL (2.18-3.98)
== END | disposition home or self-care (01) ==
LOC: BIMLAB 08:58
PROVIDERS: PCP Physician Assistant; Referring Provider Internal Medicine Endocrinology, Diabetes & Metabolism; Visit Provider Internal Medicine Endocrinology, Diabetes & Metabolism
DX: E05.00 Thyrotoxicosis with diffuse goiter without thyrotoxic crisis or storm (principal)
CPT/HCPCS: 36415; 84439; 84443; 84481

== ENCOUNTER → 2025-05-08 | Outpatient (CLI) | payer MEDICARE, SELFPAY ==
[2025-05-08 08:32] LABS: Hematocrit 41.5 % (37-47); Hemoglobin 13.3 g/dL (12.0-15.0); Immature Granulocytes Count 0.020 X10^3/uL (0.0-0.0); Mean Corp Hgb Conc 32.0 g/dL (32-36); Mean Corpuscular Volume 87.4 fL (81-99); Mean Platelet Vol. 9.7 fl (6.2-12.0); NRBC Flagged by Analyzer 0 % (0-5); Platelet Count 185 K/mm3 (150-450); RBC Distribution Width CV 12.8 % (11.6-14.6); RBC Distribution Width SD 41.1 fl (35.1-43.9); Red Blood Count 4.75 M/mm3 (4.2-5.4); White Blood Count 7.1 K/mm3 (4.4-11.0)
[2025-05-08 09:14] LABS: Anion Gap 11 (5-15); BUN 20 mg/dL (4-19); BUN/Creat Ratio 28.7 RATIO (10-20); Calcium,Total 9.6 mg/dL (7.6-11.0); Carbon Dioxide 25.4 mmol/L (21.0-32.0); Chloride 103 mmol/L (98-108); Glucose 135 mg/dL (70-99); Potassium 4.5 mmol/L (3.3-5.1)
[2025-05-08 13:28] LABS: Free T3 3.5 pg/mL (2.18-3.98)
== END | disposition home or self-care (01) ==
LOC: PSN 07:03
PROVIDERS: Internal Medicine Endocrinology, Diabetes & Metabolism; PCP Physician Assistant; Referring Provider Physician Assistant Surgical; Visit Provider Physician Assistant Surgical
DX: Z01.818 Encounter for other preprocedural examination (principal); Z01.810 Encounter for preprocedural cardiovascular examination; E05.00 Thyrotoxicosis with diffuse goiter without thyrotoxic crisis or storm
CPT/HCPCS: 36415; 80048; 83036; 84439; 84443; 84481; 85025; 93005

== ENCOUNTER → 2025-06-09 | Outpatient (CLI) | payer MEDICARE, SELFPAY ==
[2025-06-09 13:20] LABS: Free T3 4.0 pg/mL (2.18-3.98)
== END | disposition home or self-care (01) ==
LOC: MTLAB 10:01
PROVIDERS: PCP Physician Assistant; Referring Provider Nurse Practitioner Family; Visit Provider Nurse Practitioner Family
DX: E05.00 Thyrotoxicosis with diffuse goiter without thyrotoxic crisis or storm (principal)
CPT/HCPCS: 36415; 84439; 84443; 84481

== ENCOUNTER → 2025-07-08 | Outpatient (CLI) | payer MEDICARE, SELFPAY ==
[2025-07-08 13:04] LABS: Free T3 4.1 pg/mL (2.18-3.98)
== END | disposition home or self-care (01) ==
LOC: MTLAB 09:52
PROVIDERS: PCP Physician Assistant; Referring Provider Internal Medicine Endocrinology, Diabetes & Metabolism; Visit Provider Internal Medicine Endocrinology, Diabetes & Metabolism
DX: E05.00 Thyrotoxicosis with diffuse goiter without thyrotoxic crisis or storm (principal)
CPT/HCPCS: 36415; 84439; 84443; 84481

== ENCOUNTER → 2025-08-11 | Outpatient (CLI) | payer MEDICARE, SELFPAY ==
[2025-08-11 14:03] LABS: Free T3 2.6 pg/mL (2.18-3.98)
== END | disposition home or self-care (01) ==
LOC: LAB 12:21
PROVIDERS: PCP Physician Assistant; Referring Provider Internal Medicine Endocrinology, Diabetes & Metabolism; Visit Provider Internal Medicine Endocrinology, Diabetes & Metabolism
DX: E05.00 Thyrotoxicosis with diffuse goiter without thyrotoxic crisis or storm (principal)
CPT/HCPCS: 36415; 84439; 84443; 84481

== ENCOUNTER → 2025-08-13 | Outpatient (CLI) | payer MEDICARE, SELFPAY ==
[2025-08-13 14:32] LABS: Mucous, Urine 0 SEEN /hpf (<or=2+)
[2025-08-13 18:05] LABS: Color, Urine Straw (Yellow); Glucose, Dipstick 1000 mg/dl (Normal); Ketone-Dipstick Negative (Negative); Leukocyte Esterase-Dipstick 500 /ul (Negative); Nitrite-Dipstick Negative (Negative); Occult Blood-Urine 50 /ul (Negative); Protein-Dipstick 15 mg/dl (Negative); Specific Gravity, Urine 1.010 (1.002-1.030); Urine Bilirubin Dipstick Negative (Negative)
[2025-08-13 18:36] LABS: Red Blood Cells-Urine 5-10 SEEN /hpf (0-5); Squamous Epithelial Cells - UA 10-25 SEEN /hpf (5-10)
== END | disposition home or self-care (01) ==
LOC: MTLAB 14:24
PROVIDERS: PCP Physician Assistant; Referring Provider Physician Assistant Medical; Visit Provider Physician Assistant Medical
DX: L29.89 Other pruritus (principal)
CPT/HCPCS: 81001